=== PATIENT | female | born 1945 | race Hispanic/Latino ===

== ENCOUNTER 2025-07-19 00:46 | Emergency (ER) | payer MEDICARE, OTHER ==
[2025-07-19 01:36] LABS: #Basophils Less than 0.03 10x3/uL (0.0-0.2); #Eosinophils 0.21 10x3/uL (0.0-0.5); #Monocytes 0.55 10x3/uL (0.0-1.1); #Neutrophils 4.92 10x3/uL (1.5-8.4); %Basophils 0.3 % (0.0-2.0); %Eosinophils 2.6 % (0.0-6.0); %Lymphocytes 27.9 % (18.0-47.0); %Monocytes 6.9 % (0.0-10.0); %Neutrophils 61.9 % (40.0-75.0); Hematocrit 37.1 % (34.9-44.5); Hemoglobin 12.7 g/dL (12.0-15.5); Mean Corpuscular Hemoglobin 33.4 pg (27.0-33.0); Mean Corpuscular Volume 97.6 fL (81.6-98.3); Platelet Count 187 10x3/uL (150-450); Red Blood Cell (RBC) Count 3.80 10x6/uL (3.90-5.03); White Blood Cell (WBC) Count 7.95 10x3/uL (3.5-10.5)
[2025-07-19 01:58] LABS: Troponin I Less than 0.010 ng/mL (< 0.028)
[2025-07-19 02:02] LABS: ALT (SGPT) 21 U/L (Less than 34); AST (SGOT) 21 U/L (11-34); Albumin 3.9 g/dL (3.1-4.5); Alkaline Phosphatase 45 U/L (40-110); Anion Gap 13 mmol/L (10-20); BUN (Urea Nitrogen) 21 mg/dL (9.8-20.1); Bilirubin, Total 0.4 mg/dL (0.3-1.2); Calc. Creatinine Clearance 0 mL/min (70-130); Calcium 8.8 mg/dL (7.8-10.44); Carbon Dioxide 24 mmol/L (23-31); Chloride 108 mmol/L (98-107); Globulin 2.9 g/dL (2.4-3.5); Glucose 118 mg/dL (83-110); Potassium 3.6 mmol/L (3.5-5.1); Sodium 141 mmol/L (136-145)
[2025-07-19 02:38] LABS: Glucose, Urine (Dipstick) Normal (Negative); Leukocyte 100 (Negative); Protein, Urine (Dipstick) Negative (Neg-Trace); Specific Gravity, Urine 1.020 (1.005-1.030)
[2025-07-19 02:47] LABS: Bacteria/HPF Rare-Few HPF (None Seen); CAUTI Indications for Culture Alt mental st,lethar; RBC/HPF 0-3 HPF (0-3)
[2025-07-19 02:48] LABS: Urine Culture Reflex No No
== END 2025-07-19 04:00 | disposition home or self-care (01) ==
LOC: CSHERS 00:46
DX: R53.81 Other malaise (principal); I10 Essential (primary) hypertension; I25.10 Atherosclerotic heart disease of native coronary artery without angina pectoris
CPT/HCPCS: 70450; 71045; 80053; 81001; 84443; 84484; 85025; 87428; 93005